=== PATIENT | male | born 1970 | race Two or more races ===

== ENCOUNTER 2016-10-04 14:11 | Emergency (ER) | payer SELFPAY ==
[~2016-10-04] VITALS: Ht 170.2 cm; Wt 68.2 kg
[2016-10-04 14:12] VITALS: BP 144/84
[2016-10-04] MEDS ORDERED: IV NORMAL SALINE 1000ML BAG 1,000 ML IV ONE (15:00)
[2016-10-04 15:15] LABS: BASO % 1 % (0-3); EOS % 2 % (0-3); HEMATOCRIT 45.5 % (39.0-53.0); HEMOGLOBIN 15.8 g/dL (13.0-17.5); LYMPH # 1.5 x10^3/uL (1.0-4.8); LYMPH % 26 % (24-48); MEAN CORPUSCULAR HEMOGLOBIN 30 pg (25-35); MEAN CORPUSCULAR HGB CONC 35 g/dL (31-37); MEAN CORPUSCULAR VOLUME 85 fL (79-100); MONO % 10 % (0-9); NEUT % 62 % (31-73); PLATELET COUNT 127 x10^3/uL (140-400); RED BLOOD COUNT 5.33 x10^6/uL (4.30-5.70); WHITE BLOOD COUNT 5.9 x10^3/uL (4.0-11.0)
[2016-10-04 15:26] LABS: CALCIUM 8.7 mg/dL (8.5-10.1); CREATININE 1.1 mg/dL (0.7-1.3); GFR 72.7; POTASSIUM 3.6 mmol/L (3.5-5.1)
--- NOTE | 2016-10-04 15:37 | RAD ---
Indication: Difficulty swallowing for a week. Technique: Axial images and coronal and sagittal reformatted images are provided. Evaluation is limited without IV contrast. No comparison is available. One or more of the following individualized dose reduction techniques were utilized for this examination: 1. Automated exposure control 2. Adjustment of the mA and/or kV according to patient size 3. Use of iterative reconstruction technique Findings: There is ethmoid mucosal thickening. There is moderate left maxillary mucosal thickening. Orbital contents are unremarkable. Parotid and submandibular glands are unremarkable. Thyroid is unremarkable. Lymph nodes along the cervical chains are presumed reactive. There is no airway narrowing. There is minimal apical emphysema and scarring. There are degenerative changes in the spine greatest at C6-C7. These are mild overall. Impression: 1. Mildly prominent lymph nodes may be reactive. 2. Left maxillary and bilateral ethmoid mucosal thickening.
--- NOTE | 2016-10-04 15:38 | RAD ---
Indication: Difficulty swallowing and diarrhea. Technique: Two-view chest radiograph was obtained. No comparison is available. Findings: The lungs are clear. The cardiopulmonary silhouette is within normal limits. There is no pleural effusion. The bony structures are intact. Impression: No acute thoracic findings.
--- NOTE | 2016-10-04 16:33 | PHYS DOC ---
Past Medical History Past Medical History: No Pertinent History Past Surgical History: No Surgical History Additional Information: 0.25 PPD Alcohol Use: None Drug Use: Marijuana Adult General Chief Complaint Chief Complaint: DIFFICULTY SWALLOWING HPI HPI Patient is a 46 year old female who presents with difficulty swallowing. Patient reports for the past week he has had a little bit of trouble swallowing. He does have a slight amount of discomfort with swallowing, but no significant sore throat. Does report having a fever and cough last week. This week he has had decreased appetite due to the difficulty swallowing, and has last a little bit of weight over this time. He says he is okay swallowing liquids, and meat is the hardest to swallow. No prior difficulty swallowing. Review of Systems Review of Systems Constitutional: fever last week (resolved) HENT: Mild sore throat, difficulty swallowing Respiratory: Denies shortness of breath. Cough last week (resolved) Cardiovascular: Denies chest pain GI: Denies abdominal pain, nausea, vomiting, bloody stools or diarrhea : Denies dysuria or hematuria Musculoskeletal: Denies back pain or joint pain Integument: Denies rash or skin lesions Neurologic: Denies headache, focal weakness or sensory changes Current Medications Current Medications Current Medications Medications (Trade) Dose Ordered Sig/Elisabet Start Time Stop Time Status Last Admin Dose Admin Sodium Chloride (Iv Sodium Chloride 0.9% 1000ml Bag) 1,000 ml @ 1,000 mls/hr 1X ONCE 10/04/16 15:00 10/04/16 15:59 DC 10/04/16 15:30 1,000 MLS/HR Allergies Allergies Allergies Coded Allergies Type Severity Reaction Last Updated Verified No Known Drug Allergies 10/04/16 No Physical Exam Physical Exam Constitutional: Well developed, well nourished, no acute distress, non-toxic appearance HENT: Normocephalic, atraumatic, bilateral external ears normal; oropharynx clear without erythema or exudate; exterior neck unremarkable Neck: Normal range of motion, no stridor Cardiovascular: Heart rate normal, regular rhythm, no murmur Lungs & Thorax: Bilateral breath sounds clear to auscultation Abdomen: Bowel sounds normal, soft, non-distended, no TTP Skin: Warm, dry, no erythema, no rash Extremities: No obvious deformity, no edema Neurologic: Alert and oriented X 3, no gross deficits noted Psychologic: Affect normal, judgement normal, mood normal Current Patient Data Vital Signs Vital Signs Date Time Temp Pulse Resp B/P Pulse Ox O2 Delivery O2 Flow Rate FiO2 10/04/16 14:12 97.8 61 18 144/84 96 Room Air 97.8 Lab Values Laboratory Tests Test 10/04/16 15:05 White Blood Count 5.9x10^3/uL (4.0-11.0) Red Blood Count 5.33x10^6/uL (4.30-5.70) Hemoglobin 15.8g/dL (13.0-17.5) Hematocrit 45.5% (39.0-53.0) Mean Corpuscular Volume 85fL (79-100) Mean Corpuscular Hemoglobin 30pg (25-35) Mean Corpuscular Hemoglobin Concent 35g/dL (31-37) Red Cell Distribution Width 13.0% (11.5-14.5) Platelet Count 127x10^3/uL (140-400) L Neutrophils (%) (Auto) 62% (31-73) Lymphocytes (%) (Auto) 26% (24-48) Monocytes (%) (Auto) 10% (0-9) H Eosinophils (%) (Auto) 2% (0-3) Basophils (%) (Auto) 1% (0-3) Neutrophils # (Auto) 3.6x10^3uL (1.8-7.7) Lymphocytes # (Auto) 1.5x10^3/uL (1.0-4.8) Monocytes # (Auto) 0.6x10^3/uL (0.0-1.1) Eosinophils # (Auto) 0.1x10^3/uL (0.0-0.7) Basophils # (Auto) 0.0x10^3/uL (0.0-0.2) Sodium Level 143mmol/L (136-145) Potassium Level 3.6mmol/L (3.5-5.1) Chloride Level 106mmol/L (98-107) Carbon Dioxide Level 28mmol/L (21-32) Anion Gap 9 (6-14) Blood Urea Nitrogen 14mg/dL (8-26) Creatinine 1.1mg/dL (0.7-1.3) Estimated GFR (Cockcroft-Gault) 72.7 Glucose Level 86mg/dL (70-99) Calcium Level 8.7mg/dL (8.5-10.1) Laboratory Tests 10/04/16 15:05 Laboratory Tests 10/04/16 15:05 EKG EKG [] Radiology/Procedures Radiology/Procedures CT soft tissue neck: Impression: 1. Mildly prominent lymph nodes may be reactive. 2. Left maxillary and bilateral ethmoid mucosal thickening. CXR: Impression: No acute thoracic findings. Course & Med Decision Making Course & Med Decision Making Pertinent Labs and Imaging studies reviewed. (See chart for details) Patient is 46-year-old man who presents with difficulty swallowing. Possible esophageal stricture. Able to swallow liquids without difficulty. Will obtain CT soft tissue neck, chest x-ray to evaluate. Basic labs and rapid strep ordered. IV fluids given. Labs unremarkable. Rapid strep negative. Imaging results as above. Discussed results with patient. I also discussed the importance of following up with GI as soon as possible for further evaluation. Given instructions for liquid and soft food diet. Given strict return precautions. Dragon Disclaimer Dragon Disclaimer This electronic medical record was generated, in whole or in part, using a voice recognition dictation system. Departure Departure Impression: Primary Impression: Trouble swallowing Disposition: HOME, SELF-CARE Condition: STABLE Referrals: NO PCP (PCP) ZACHARY GASPAR MD Patient Instructions: Dysphagia Additional Instructions: Thank you for allowing us to provide care today in the Emergency Department. Follow a soft food or liquid diet (applesauce, broth, jello) until you can see the GI specialist. Schedule a follow up appointment with a GI specialist using the provided contact information. Return promptly to the Emergency Department if you develop any new or concerning symptoms. JARROD FLEMING MD Oct 04, 2016 16:33
[2016-10-05 11:35] LABS: NEGATIVE OBC STREP NEG; POSITIVE OBC STREP POS
== END 2016-10-04 16:42 | disposition home or self-care (01) ==
LOC: ER 14:11
DX: R13.10 Dysphagia, unspecified (principal); J02.9 Acute pharyngitis, unspecified; R50.9 Fever, unspecified; R05 Cough; R19.7 Diarrhea, unspecified; F12.10 Cannabis abuse, uncomplicated; F17.200 Nicotine dependence, unspecified, uncomplicated
CPT/HCPCS: 36415; 70490; 71020; 80048; 85027; 87070; 87880; 96360; 99285; J7030

== ENCOUNTER 2019-09-19 21:09 | Emergency (ER) | payer SELFPAY ==
[~2019-09-19] VITALS: Ht 170.2 cm; Wt 63.6 kg
[2019-09-19 21:21] VITALS: BP 138/78
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
== END 2019-09-19 21:42 | disposition home or self-care (01) ==
LOC: ER 21:09
DX: S41.112A Laceration without foreign body of left upper arm, initial encounter (principal); S21.112A Laceration without foreign body of left front wall of thorax without penetration into thoracic cavity, initial encounter; F12.90 Cannabis use, unspecified, uncomplicated; F17.200 Nicotine dependence, unspecified, uncomplicated; X99.8XXA Assault by other sharp object, initial encounter; Y93.89 Activity, other specified; Y92.89 Other specified places as the place of occurrence of the external cause; Y99.8 Other external cause status
CPT/HCPCS: 99281